=== PATIENT | male | born 1995 | race Caucasian/White ===

== ENCOUNTER 2018-09-04 08:21 | Inpatient (IN) | payer BC ==
[~2018-09-04] VITALS: Ht 172.7 cm; Wt 72.6 kg
[2018-09-04] MEDS ORDERED: ONDANSETRON 4 MG/2 ML VIAL IV ONE ×2 (08:30→14:34)
[2018-09-04] MEDS ORDERED: IV NORMAL SALINE 1000 ML BAG IV ONE ×3 (08:30→14:34)
[2018-09-04] MEDS ORDERED: MORPHINE SULFATE 2 MG/1 ML DISP.SYRIN IV ONE (08:30)
[2018-09-04] MEDS ORDERED: MORPHINE SULFATE 4 MG/1 ML DISP.SYRIN ONE ×2 (08:34→10:14)
[2018-09-04] MEDS ORDERED: ONDANSETRON 4 MG/2 ML VIAL ONE (08:34)
[2018-09-04 08:38] LABS: BASOPHILS # (AUTO) 0.1 K/uL (0.0-8.0); BASOPHILS % (AUTO) 0.4 % (0.0-2.0); EOSINOPHILS # (AUTO) 0.7 K/uL (0.0-0.7); EOSINOPHILS % (AUTO) 3.4 % (0.0-7.0); HEMATOCRIT 46.7 % (36.7-47.1); HEMOGLOBIN 15.5 g/dL (12.5-16.3); LYMPHOCYTES # (AUTO) 2.4 K/uL (20.0-40.0); LYMPHOCYTES % (AUTO) 12.2 % (20.5-51.5); MEAN CORPUSCULAR HEMOGLOBIN 28.2 uug (23.8-33.4); MEAN CORPUSCULAR HGB CONC 33 g/dL (32.5-36.3); MEAN CORPUSCULAR VOLUME 84.7 fL (73.0-96.2); MONOCYTES # (AUTO) 1.4 K/uL (2.0-10.0); MONOCYTES % (AUTO) 7.2 % (0.0-11.0); NEUTROPHILS # (AUTO) 14.8 K/uL (1.8-8.9); NEUTROPHILS % (AUTO) 76.8 % (38.5-71.5); PLATELET COUNT (AUTO) 237 K/uL (152-348); RED BLOOD CELL COUNT(AUTO) 5.51 MIL/uL (4.06-5.63); WHITE BLOOD COUNT (AUTO) 19.3 K/uL (3.6-10.2)
[2018-09-04 08:52] LABS: POTASSIUM 3.9 mmol/L (3.5-5.1)
[2018-09-04 08:57] LABS: *BILIRUBIN,URIN NEGATIVE (NEGATIVE); *BLOOD, URINE 1+ (NEGATIVE); *CLARITY,URINE CLEAR (CLEAR); *COLOR,URINE YELLOW (YELLOW); *KETONES,URINE NEGATIVE (NEGATIVE); *UROBILINOGEN,URINE 0.2 E.U./dl (NORMAL); LEUKOCYTE ESTERASE ,URINE NEGATIVE (NEGATIVE); NITRITE, URINE NEGATIVE (NEGATIVE); PH,URINE >=9.0 (5.0-8.0); UGLUCOSE NEGATIVE (NEGATIVE)
[2018-09-04 08:57] LABS: BILIRUBIN,DIRECT 0.2 mg/dL (0.0-0.2); BILIRUBIN,TOTAL 0.8 mg/dL (0.2-1.0); TOTAL PROTEIN, SERUM 8.1 g/dL (6.4-8.2)
[2018-09-04 09:18] LABS: SQUAMOUS EPITHELIAL CELL,UR NONE SEEN /HPF (NONE SEEN)
[2018-09-04 09:19] LABS: BACTERIA,URINE NONE SEEN /HPF (NONE SEEN); WBC,URINE 0-3 /HPF (0-3)
[2018-09-04] MEDS ORDERED: PIPERACILLIN/TAZOBACTAM/D5W 50 ML IV ONE (09:39)
[2018-09-04] MEDS ORDERED: PIPERACILLIN SODIUM/TAZOBACTAM 3.375 G in IV DEXTROSE 5% 50 ML IV ONE (09:45)
[2018-09-04] MEDS ORDERED: MORPHINE SULFATE 4 MG/1 ML DISP.SYRIN IV ONE (10:15)
[2018-09-04 10:52] VITALS: BP 112/47
[2018-09-04] MEDS ORDERED: LIDOCAINE HCL 1% 20 ML VIAL ONE ×2 (12:19→12:57)
[2018-09-04] MEDS ORDERED: BUPIVACAINE/EPI PF 0.25% 30 ML VIAL ONE (12:20)
[2018-09-04] MEDS ORDERED: MIDAZOLAM HCL 2 MG/2 ML VIAL ONE (12:28)
[2018-09-04] MEDS ORDERED: FENTANYL CITRATE 250 MCG/5 ML AMPUL ONE (12:29)
[2018-09-04] MEDS ORDERED: ROCURONIUM BROMIDE 50 MG/5 ML VIAL ONE (12:29)
[2018-09-04] MEDS ORDERED: METOCLOPRAMIDE HCL 10 MG/2 ML VIAL ONE (12:29)
[2018-09-04] MEDS ORDERED: IRR NORMAL SALINE IRRIGATION 1,000 ML BOTTLE IR ONE (14:34)
[2018-09-04] MEDS ORDERED: PROPOFOL 200 MG/20 ML BOTTLE IV ONE (14:34)
[2018-09-04] MEDS ORDERED: NEOSTIGMINE METHYLSULFATE 10 MG/10 ML VIAL IV ONE (14:34)
[2018-09-04] MEDS ORDERED: SEVOFLURANE 250 ML BOTTLE IH ONE (14:34)
[2018-09-04] MEDS ORDERED: GLYCOPYRROLATE 0.2 MG/ML VIAL MC ONE (14:34)
[2018-09-04] MEDS ORDERED: CEFAZOLIN 1 G VIAL MC ONE (14:34)
[2018-09-04 16:00] VITALS: BP 99/48
[2018-09-04] MEDS ORDERED: HYDROMORPHONE 1 MG/1 ML DISP.SYRIN IV PRN ×2 (16:00→18:00)
[2018-09-04] MEDS ORDERED: ONDANSETRON 4 MG/2 ML VIAL IV PRN (16:00)
[2018-09-04] MEDS ORDERED: HYDROCODONE/APAP 10-325 MG TABLET PO PRN (16:00)
[2018-09-04] MEDS: IV NS 1000 ML 1,000 ML IV PRN (17:39)
[2018-09-04] MEDS ORDERED: ZOLPIDEM 5 MG TABLET PO PRN (17:45)
[2018-09-04] MEDS ORDERED: ACETAMINOPHEN 325 MG TABLET PO PRN (17:45)
[2018-09-04 18:55] VITALS: BP 106/62
[2018-09-04 19:33] VITALS: BP 113/54
[2018-09-05] MEDS: IV NS 1000 ML 1,000 ML IV PRN (01:30)
[2018-09-05 03:40] VITALS: BP 103/58
[2018-09-05 07:17] LABS: BASOPHILS % (AUTO) 0.5 % (0.0-2.0); EOSINOPHILS # (AUTO) 0.2 K/uL (0.0-0.7); HEMATOCRIT 39.4 % (36.7-47.1); HEMOGLOBIN 13.3 g/dL (12.5-16.3); LYMPHOCYTES # (AUTO) 2.5 K/uL (20.0-40.0); LYMPHOCYTES % (AUTO) 26.6 % (20.5-51.5); MEAN CORPUSCULAR HEMOGLOBIN 28.9 uug (23.8-33.4); MEAN CORPUSCULAR HGB CONC 34 g/dL (32.5-36.3); MEAN CORPUSCULAR VOLUME 85.6 fL (73.0-96.2); MONOCYTES # (AUTO) 0.8 K/uL (2.0-10.0); MONOCYTES % (AUTO) 8.2 % (0.0-11.0); NEUTROPHILS # (AUTO) 5.9 K/uL (1.8-8.9); NEUTROPHILS % (AUTO) 62.7 % (38.5-71.5); PLATELET COUNT (AUTO) 171 K/uL (152-348); WHITE BLOOD COUNT (AUTO) 9.4 K/uL (3.6-10.2)
[2018-09-05 07:26] LABS: PHOSPHOROUS 3.1 mg/dL (2.5-4.9); POTASSIUM 3.7 mmol/L (3.5-5.1)
[2018-09-05 11:45] VITALS: BP 119/52
[2018-09-05] MEDS ORDERED: ACET-2154 PO ×2 (13:24→13:33)
[2018-09-05 16:00] VITALS: BP 120/50
== END 2018-09-05 21:25 | disposition home or self-care (01) | DRG 337 ==
LOC: ER 08:21 → MEDSURG3 10:29
PROVIDERS: ADMIT Nurse Practitioner Acute Care; ATTEND Nurse Practitioner Acute Care
PROC: 0DTJ4ZZ Resection of Appendix, Percutaneous Endoscopic Approach (ICD-10-PCS; principal; 2018-09-04)
PROC: 0DNJ4ZZ Release Appendix, Percutaneous Endoscopic Approach (ICD-10-PCS; principal; 2018-09-04)
DX: K35.890 Other acute appendicitis without perforation or gangrene (principal); J45.909 Unspecified asthma, uncomplicated; K21.9 Gastro-esophageal reflux disease without esophagitis; D72.829 Elevated white blood cell count, unspecified; K38.8 Other specified diseases of appendix
CPT/HCPCS: 36415; 83690; 83735; 84100; 85025; A4217; A4663; G0378; J0690; J2250; J2270; J2405; J2543; J2710; J2765; J3010; J3490; J7030